=== PATIENT | male | born 1945 | race African-American/Black ===

== ENCOUNTER → 2019-05-22 | Day surgery (SDC) | payer SELFPAY ==
[~2019-05-22] MED LIST: EPHEDRINE SULFATE INJ 50 MG/10 ML SYR ONE; FENTANYL CITRATE/PF 100MCG/2 ML INJ ONE; LIDOCAINE HCL 2% LOCAL INJ 5 ML SDV VIAL INJ ONE; MIDAZOLAM HCL 2 MG/2 ML VIAL ONE; ONDANSETRON HCL INJ 2MG/ML 2ML 2 MG/ML VIAL ONE; OR PHACO EYE KIT ONE; PREOP PHACO EYE KIT ONE; PROPOFOL IV EMULSION 10 MG/ML 20 ML VIAL ONE; SEVOFLURANE INHAL SOLN 250 ML PEN BTL ONE; SINEMET 10-1001 EACH PO; VITAMIN C60 MG PO; ZOLOFT50 MG PO; [UNRECOGNIZED DRUG - OTHER] PO
[2019-05-22 13:40] VITALS: BP 141/84
== END | disposition home or self-care (01) ==
LOC: OR 09:49
PROVIDERS: ATTEND Ophthalmology
DX: H25.11 Age-related nuclear cataract, right eye (principal); K44.9 Diaphragmatic hernia without obstruction or gangrene; J44.9 Chronic obstructive pulmonary disease, unspecified; I44.0 Atrioventricular block, first degree; G20 Parkinson's disease; F41.9 Anxiety disorder, unspecified
CPT/HCPCS: 66984; J2001; J2405; J2704; J3010; V2632; J2250